=== PATIENT | male | born 2000 | race Caucasian/White ===

== ENCOUNTER 2023-07-13 13:47 | Emergency (ER) | payer BC, SELFPAY ==
--- NOTE | ~2023-07-13 | XR_ITS ---
EXAMINATION: XR lumbar spine 2-3V DATE: 07/13/2023 15:15 INDICATION: Left-sided low back pain. TECHNIQUE: 3 views of lumbar spine were obtained. COMPARISON: None. FINDINGS: Bone alignment is normal. Vertebral body heights are normal. There is mildly decreased disc height at L5-S1. There is multilevel mild facet joint osteoarthritis. IMPRESSION: 1. Mild lumbar spondylosis. Reviewed, dictated and finalized at location E. T ADVISOR IMPRESSION: 1. Mild lumbar spondylosis.
[2023-07-13 13:49] VITALS: BP 152/77; PULSE 70; RESP 20; TEMP 36.7; O2SAT 99
--- NOTE | 2023-07-13 14:20 | ED.BACK ---
HPI - Back Pain/Injury General Chief Complaint: Back Pain/Injury Stated Complaint: sciatic pain Time Seen by Provider: 07/13/23 14:01 History of Present Illness HPI Narrative: 23-year-old male presents to the emergency room for evaluation of low back pain that radiates down his left leg into his heel. Patient states he has been experiencing pain for longer than 1 month. Has been taking gabapentin with no relief. Denies any injury or trauma. Denies saddle anesthesia. Denies IV drug use. Denies fevers. No low back red flags. Pain is worse with ambulation Related Data Allergies Allergy/AdvReac Type Severity Reaction Status Date / Time No Known Allergies Allergy Verified 07/13/23 13:53 Review of Systems Review of Systems: CONSTITUTIONAL: Denies fever, chills, or sweats. EYES: Denies visual changes, redness, or discharge. ENT: Denies rhinorrhea, congestion, sore throat, or otalgia. CARDIOVASCULAR: Denies chest pain, palpitations, or edema. RESPIRATORY: Denies cough or dyspnea. GASTROINTESTINAL: Denies abdominal pain, nausea, vomiting, or diarrhea. GENITOURINARY: Denies dysuria or hematuria. SKIN: Denies rash or itching. MUSCULOSKELETAL: Reports low back pain NEUROLOGIC: Denies headache, numbness, dizziness, or weakness. PSYCHIATRIC: Denies anxiety or depression. Exam Narrative: GENERAL: Well-appearing, well-nourished, no physical limitations, and in no acute distress. HEAD: Normocephalic, atraumatic. EYES: Conjunctivae normal, PERRLA and EOMI. CHEST: Clear to auscultation. No respiratory distress. No wheezes rales or rhonchi. HEART: Regular rate and rhythm. No murmur heard. Normal peripheral pulses. BACK: No cervical/thoracic/lumbar tenderness, step-offs, bony abnormality; FROM. +SLE left leg EXTREMITIES: Normal range of motion. No edema. No clubbing or cyanosis SKIN: Warm, dry, no rash. No noted wounds NEURO: No focal deficits. Alert and oriented x3. MAEW. CN's II-XI intact bilaterally, antalgic gait PSYCH: Cooperative. Normal mood and affect. Course Vital Signs Vital signs: Vital Signs Temperature 36.7 C 07/13/23 13:49 Pulse Rate 70 07/13/23 13:49 Respiratory Rate 20 07/13/23 13:49 Blood Pressure 152/77 H 07/13/23 13:49 Pulse Oximetry 99 07/13/23 13:49 Oxygen Delivery Room Air 07/13/23 13:49 Temperature 36.7 C 07/13/23 13:49 Pulse Rate 70 07/13/23 13:49 Respiratory Rate 20 07/13/23 13:49 Blood Pressure 152/77 H 07/13/23 13:49 Pulse Oximetry 99 07/13/23 13:49 Oxygen Delivery Room Air 07/13/23 13:49 Discharge Plan Discharge Clinical Impression: Sciatica Patient Disposition: Home, Self-Care Condition: Stable Instructions: Antibiotic Form, Acute Low Back Pain (ED) Prescriptions: New methocarbamol 750 mg tablet 750 mg PO TID Qty: 21 0RF prednisone 20 mg tablet 60 mg PO DAILY 5 Days Qty: 15 0RF Follow-up/Referrals: Lizbeth Restrepo MD [Primary Care Provider] - Colin Alan MD [Physician] - Time of Disposition: 15:27
== END 2023-07-13 15:37 | disposition home or self-care (01) ==
PROVIDERS: Emergency Provider Nurse Practitioner Family; PCP Pediatrics
DX: M54.42 Lumbago with sciatica, left side (principal)
CPT/HCPCS: 72100; 96372; 99283; J1100